=== PATIENT | female | born 1935 | race Native Hawaiian/Other Pacific Islander ===

== ENCOUNTER 2017-02-16 07:56 | Day surgery (SDC) | payer MEDICARE ==
[2017-02-13 11:24] VITALS: BMI 27.8
[2017-02-16] MEDS ORDERED: Phenylephrine 10 mg/ml Inj ONE (08:11)
--- NOTE | 2017-02-16 09:31 | CP.PCM.PN ---
Subjective - Date & Time of Evaluation Date of Evaluation: 02/16/17 Time of Evaluation: 09:28 - Subjective Subjective: PROCEDURE NOTE Proc: Tilt Table Test Indic: recurrent dizziness DOS: 02/16/2017 IMPRESSION: Normal Tilt table test Appropriate BP and HR response to Tilt Table Test Asymptomatic throughout the test
[2017-02-16 09:56] VITALS: TEMP 97.8
[2017-02-16 11:04] VITALS: BP 127/60; PULSE 77; RESP 18; O2SAT 100
== END 2017-02-16 10:35 | disposition home or self-care (01) ==
LOC: C.CATHLAB 07:56
PROVIDERS: ATTEND Internal Medicine
DX: R42 Dizziness and giddiness (principal)
CPT/HCPCS: 82948; 93660; J2370

== ENCOUNTER 2017-10-09 12:49 | Emergency (ER) | payer MEDICARE ==
[2017-10-09 12:49] VITALS: BMI 27.8
[2017-10-09 13:07] VITALS: BP 156/83; PULSE 70; RESP 18; TEMP 97.5; O2SAT 99
--- NOTE | 2017-10-09 13:34 | C.PDOC ---
History Of Present Illness NEW ONSET B/L NIPPLE RASH X 1 WEEK. +ITCH. NO NIPPLE DC, BREAST SWELL OR OTHER ABN. DENIES OTHER ASSOC SX EXAM NONTOXIC BREAST B/L NIPPLES: +CUTANEOUS NODULES AREOLAR AREA, HYPERPIGMENTED, MULTIPLE. WELL CIRCUMSCRIBED NONTEND. NO EXCORIATION. NO NIPPLE DC, PUCKERING. NO BREAST MASS ON PALPATION. NODES NO AXILLA OR CLAV NODES REMAINDER NEG Time Seen by Provider: 10/09/17 13:14 Chief Complaint (Nursing): Abnormal Skin Integrity History Per: Patient History/Exam Limitations: no limitations Onset/Duration Of Symptoms: Days Current Symptoms Are (Timing): Still Present Quality Of Symptoms: Itching Severity: Moderate Past Medical History Reviewed: Historical Data, Nursing Documentation, Vital Signs Vital Signs: Last Vital Signs Temp 97.5 F L 10/09/17 13:04 Pulse 70 10/09/17 13:04 Resp 18 10/09/17 13:04 BP 156/83 H 10/09/17 13:04 Pulse Ox 99 10/09/17 14:07 - Medical History PMH: Cardia Arrhythmia (CHRONIC ATRIAL FIB.), COPD, HTN Surgical History: Appendectomy Family History: States: No Known Family Hx - Social History Hx Alcohol Use: No Hx Substance Use: No - Immunization History Hx Tetanus Toxoid Vaccination: No Hx Influenza Vaccination: Yes Hx Pneumococcal Vaccination: Yes Review Of Systems Except As Marked, All Systems Reviewed And Found Negative. Skin: Positive for: Rash (bilateral nipple rash), Other (no breast swelling or nipple discharge) Physical Exam - Physical Exam Appears: Non-toxic, No Acute Distress Skin: Normal Color, Warm Head: Atraumatic, Normacephalic Lymphatic: Other (no axilla or clavicular nodes) Chest: No Tenderness (breast b/l nipples), Other (Breast B/L Nipples: Cutaneous nodules present, areolar area, hyperpigmented, multiple, well circumscribed,no excoriation, no nipple discharge, puckering, no breast mass on palpation) Neurological/Psych: Oriented x3, Normal Speech, Normal Cognition, Normal Motor, Normal Sensation ED Course And Treatment O2 Sat by Pulse Oximetry: 99 - Physician Consult Information Time Consulting Physician Contacted: 13:30 Outcome Of Conversation: D/W DR DE JESUS, REFER TO DR CONTRERAS @ [facility] Disposition Counseled Patient/Family Regarding: Diagnosis, Need For Followup, Rx Given - Disposition Referrals: Luis A Contreras MD [Staff Provider] - [facility] [place] [Outside] Disposition: HOME/ ROUTINE Disposition Time: 13:40 Condition: GOOD Additional Instructions: FOLLOW UP WITH DR CONTRERAS IN [facility] FOR FURTHER EVALUATION AND TREATMENT OF YOUR BREAST ABNORMALITY. TOPICAL ALOE OR CALAMINE NEEDED FOR ITCH. BENADRYL DIRECTED FOR ITCH. Prescriptions: DiphenhydrAMINE [Benadryl] 50 mg PO TID PRN #30 cap PRN Reason: Itching / Pruritus Forms: [employer] (Yoruba) - Clinical Impression Clinical Impression: Nipple lesion - Scribe Statement The provider has reviewed the documentation as recorded by the Julio César Reeves Provider Attestation: All medical record entries made by the Austynibe were at my direction and personally dictated by me. I have reviewed the chart and agree that the record accurately reflects my personal performance of the history, physical exam, medical decision making, and the department course for this patient. I have also personally directed, reviewed, and agree with the discharge instructions and disposition.
== END 2017-10-09 13:43 | disposition home or self-care (01) ==
LOC: C.ER 12:49
DX: L98.8 Other specified disorders of the skin and subcutaneous tissue (principal)